=== PATIENT | female | born 1990 ===

== ENCOUNTER 2017-01-19 09:34 | Day surgery (SDC) | payer OTHER ==
[2017-01-16 08:07] VITALS: BMI 27.1
[2017-01-19] MEDS ORDERED: Strong Iodine Topical Sol. 5%-10% ONE (09:35)
[2017-01-19] MEDS ORDERED: Ferric Subsulfate Sol(60 mL) ONE (09:36)
[2017-01-19] MEDS ORDERED: Lactated Ringer's 1,000 ML IV ONE (10:29)
[2017-01-19] MEDS ORDERED: Propofol 10 mg/ml Inj (20 ML) ONE (10:59)
[2017-01-19] MEDS ORDERED: Sevoflurane - Inhalation Anesthetic Liq (250 ml) ONE (11:00)
[2017-01-19] MEDS ORDERED: Midazolam 2 MG/2 ML VIAL ONE (11:00)
--- NOTE | 2017-01-19 11:46 | PCM.SURG1 ---
Surgeon's Initial Post Op Note - Surgeon's Notes Surgeon: Dr Ballard Director On Air: None Type of Anesthesia: General Endo Anesthesia Administered By: Dr Bal Pre-Operative Diagnosis: High Grade Lesion of the cervix( Severe Cervical Dysplasia) Operative Findings: Normal sized uterus. Whole squamocolumnar junction seen. Some areas around the squamocolumnar junction did not take lugols iodine. IVF- 200mls. Urine Output- 50mls. EBL- 5 mls Post-Operative Diagnosis: Same as preop Operation Performed: LEEP Cone Biopsy of Cervix using the Akimbojad cone Excisor - Small size Specimen/Specimens Removed: Cervical tissue Estimated Blood Loss: EBL {In ML}: 5 Post-Op Condition: Good Date of Surgery/Procedure: 01/19/17 Time of Surgery/Procedure: 11:48
--- NOTE | 2017-01-19 11:50 | CP.SDSHP ---
Same Day Surgery H & P - History Proposed Procedure: LEEP cone biopsy Pre-Op Diagnosis: Sever cervical dysplasia - Previous Medical/Surgical History Previous Surgical History: NKDA - Allergies Allergies: Allergies No Known Allergies Allergy (Verified 09/20/16 08:27) - Physical Exam General Appearance: Well Vital Signs: Vital Signs 01/19/17 01/19/17 09:55 09:58 Temperature 98.2 F Pulse Rate 82 82 Respiratory 20 Rate Blood Pressure 105/64 O2 Sat by Pulse 98 Oximetry Mental Status: Alert & Oriented x3 Neuro: WNL Heart: WNL Lungs: WNL GI: WNL - {Optional Preform as Required} Abdomen: WNL : WNL - Impression Impression: Severe Cervical Dysplasia( HGSIL ) Pt. Evaluated Today:Candidate for Anesthesia & Procedure: Yes - Date & Time Date: 01/19/17 Time: 11:00 Short Stay Discharge - Short Stay Discharge Admitting Diagnosis/Reason for Visit: R87.613 Disposition: HOME/ ROUTINE Referrals: Fatemeh Chacon MD [Primary Care Provider] -
[2017-01-19] MEDS ORDERED: Lactated Ringer's 1,000 ML IV SCH (12:02)
[2017-01-19 12:41] VITALS: O2SAT 100
[2017-01-19 14:51] VITALS: BP 110/60; PULSE 59; RESP 19; TEMP 98
--- NOTE | 2017-01-19 19:40 | OP ---
PROCEDURE DATE: 01/19/2017 PREOPERATIVE DIAGNOSIS: A 26-year-old with severe cervical dysplasia. POSTOPERATIVE DIAGNOSIS: A 26-year-old with severe cervical dysplasia. PROCEDURE DONE: LEEP cone biopsy using the Villa Cone Excisor. SURGEON: Dr. Ballard. DIRECTOR OF PAYROLL: None. ANESTHESIA: General endotracheal. Anesthesia was administered by Dr. gAuilar. OPERATIVE FINDINGS: Normal sized anteverted uterus. The whole squamocolumnar junction was seen on s peculum examination. There were some iodine free areas after application of the Lugol's iodine. IV FLUID INTAKE: About 200 mL. URINE OUTPUT: 50 mL of clear urine. ESTIMATED BLOOD LOSS: About 5 mL. COMPLICATIONS: No complications. SPECIMEN: Cervical tissue for histopathology. DESCRIPTION OF PROCEDURE: After obtaining informed consent, the patient was sent to the OR with IV r unning. The patient was placed in the supine position on the OR table and after adequate general ane sthesia, was placed in a dorsal lithotomy position. The patient was then prepped and draped in a aliya rile fashion. The urinary bladder was drained with a straight cath with output of about 50 mL of dinah ar urine. Using a [place] speculum, the cervix was exposed. The cervix was then treated with Lugol's iodine and using a small sized Villa Cone Excisor, the circumferential tissue of the cervix includi ng the squamocolumnar junction was excised. Bleeding points after the procedure were stopped using a Bovie device. The crater left in the tissue was treated with Monsel solution. The patient tolerate d procedure well. Once the procedure was completed, all the instruments were taken out and the patie nt was then replaced in a supine position. The patient was sent to the recovery room awake and in st able condition. All counts of instruments used were correct x 3. Keith Ballard MD cc: [id number] TT: 01/19/2017 19:39:41 jn
== END 2017-01-19 13:25 | disposition home or self-care (01) ==
LOC: H.OPSURG 09:34
PROVIDERS: ATTEND Obstetrics & Gynecology
DX: R87.613 High grade squamous intraepithelial lesion on cytologic smear of cervix (HGSIL) (principal)

== ENCOUNTER 2017-01-21 18:44 | Emergency (ER) | payer OTHER ==
[2017-01-21 18:44] VITALS: BMI 27.1
[2017-01-21 19:14] VITALS: BP 110/70; PULSE 73; RESP 20; TEMP 98.4; O2SAT 100
--- NOTE | 2017-01-21 20:02 | ED PDOC ---
HPI: Abdomen Time Seen by Provider: 01/21/17 19:24 Chief Complaint (Nursing): Female Genitourinary Chief Complaint (Provider): Abdominal Pain History Per: Patient History/Exam Limitations: no limitations Onset/Duration Of Symptoms: Days (ongoing since yesterday) Outside of [place] travel?: No Current Symptoms Are (Timing): Still Present Severity: Moderate Associated Symptoms: denies: Fever, Chills, Urinary Symptoms (dysuria) Exacerbating Factors: Movement, Other (lifting heavy objects) Alleviating Factors: Rest, Other (laying flat) Additional Complaint(s): Chanel Colvin is a 26 year old female, with a past medical history of gastritis, who presents to the emergency department s/p cervical cone biopsy, performed 2 days ago, for high grade cervical dysplasia, inclusive of complaints of lower abdominal pain, ongoing since yesterday. Patient reports associated abnormal vaginal bleeding that has since then resolved. Exacerbating factors include movement and lifting heavy objects. Alleviating factors include resting and laying flat. Denies a fever, chills, dysuria, or any other medical complaints. PMD: Non H Provider, [facility] Past Medical History Reviewed: Historical Data, Nursing Documentation, Vital Signs Vital Signs: Last Vital Signs Temp 98.4 F 01/21/17 19:09 Pulse 73 01/21/17 19:09 Resp 20 01/21/17 19:09 BP 110/70 01/21/17 19:09 Pulse Ox 100 01/21/17 22:17 - Medical History PMH: Anxiety, Gastritis Denies: Chronic Kidney Disease Other PMH: High Grade Cervical Dysplasia - Surgical History Other surgeries: Cervical Cone Biopsy - Family History Family History: States: Diabetes - Immunization History Hx Tetanus Toxoid Vaccination: No Hx Influenza Vaccination: No Hx Pneumococcal Vaccination: No - Home Medications Home Medications: Ambulatory Orders Medication Instructions Recorded Cyclobenzaprine [Cyclobenzaprine 10 mg PO BID #15 tab 01/21/17 HCl] - Allergies Allergies/Adverse Reactions: Allergies Allergy/AdvReac Type Severity Reaction Status Date / Time No Known Allergies Allergy Verified 09/20/16 08:27 Review of Systems ROS Statement: Except As Marked, All Systems Reviewed And Found Negative Constitutional: Negative for: Fever, Chills Gastrointestinal: Positive for: Abdominal Pain Genitourinary Female: Negative for: Dysuria Physical Exam - Reviewed Nursing Documentation Reviewed: Yes Vital Signs Reviewed: Yes - Physical Exam Appears: Positive for: Well, Non-toxic, No Acute Distress Head Exam: Positive for: ATRAUMATIC, NORMOCEPHALIC Skin: Positive for: Normal Color, Warm, Dry Cardiovascular/Chest: Positive for: Regular Rate, Rhythm. Negative for: Murmur Respiratory: Positive for: Normal Breath Sounds. Negative for: Respiratory Distress Gastrointestinal/Abdominal: Positive for: Normal Exam, Soft. Negative for: Tenderness, Guarding, Rebound Back: Positive for: Normal Inspection. Negative for: L CVA Tenderness, R CVA Tenderness Neurologic/Psych: Positive for: Alert, Oriented - ECG O2 Sat by Pulse Oximetry: 100 (RA) Pulse Ox Interpretation: Normal Medical Decision Making Medical Decision Makin:24 Initial Impression: Postoperative pain Initial Plan: * Pelvis/Transvaginal Ultrasound * Urine Dip * Urine * Flexeril 10 mg PO * Toradol 30 mg IM * Reevaluation 2214: U/S negative for acute pathology. Will d/c home. Told patient to f/u w/ her doctor in 2 days or return to ED for worsening pain, vaginal bleeding or any other concerning symptoms. Scribe Attestation: Documented by Jhoan Caldwell, acting as a scribe for Juvenal Enriquez MD. Provider Scribe Attestation: All medical record entries made by the Scribe were at my direction and personally dictated by me. I have reviewed the chart and agree that the record accurately reflects my personal performance of the history, physical exam, medical decision making, and the department course for this patient. I have also personally directed, reviewed, and agree with the discharge instructions and disposition. Disposition - Clinical Impression Clinical Impression: Genitourinary Pain - Patient ED Disposition Is Patient to be Admitted: No Doctor Will See Patient In The: ED - Disposition [facility]errals[facility]] Disposition: Routine/Home Disposition Time: 22:16 Condition: STABLE Prescriptions: Cyclobenzaprine [Cyclobenzaprine HCl] 10 mg PO BID #15 tab Instructions: Pain Management After Surgery (GEN), Pelvic Pain in Women (ED)
--- NOTE | 2017-01-21 22:43 | US ---
EXAM: US Pelvis Complete, Transabdominal CLINICAL HISTORY: 26 years old, female; Pain; Abdominal pain; Lower abdomen; Additional info: S/P leep on thursday w/ lower abd pain and vb TECHNIQUE: Real-time transabdominal pelvic ultrasound (complete) with image documentation. COMPARISON: No relevant prior studies available. FINDINGS: Uterus/cervix: Retroverted uterus. Uterus measures 6.0 x 3.4 x 4.4 cm in size. No myometrial mass. Endometrium: 0.5 cm in thickness. Right ovary: 2.8 x 2.1 x 2.9 cm in size. No mass. Small follicles. Normal flow. Left ovary: 2.6 x 2.2 x 2.6 cm in size. No mass. Small follicles. Normal flow. Free fluid: No significant free fluid. Bladder: Unremarkable as visualized. IMPRESSION: 1.No acute findings. 2.Non-acute findings are described above. EXAM: US Pelvis, Transvaginal CLINICAL HISTORY: 26 years old, female; Pain; Abdominal pain; Lower abdomen; Additional info: S/P leep on thursday w/ lower abd pain and vb TECHNIQUE: Real-time transvaginal pelvic ultrasound (complete) with image documentation. Transvaginal imaging was used for better evaluation of the endometrium and adnexa. COMPARISON: No relevant prior studies available. FINDINGS: Uterus/cervix: Retroverted uterus. Uterus measures 6.0 x 3.4 x 4.4 cm in size. No myometrial mass. Endometrium: 0.5 cm in thickness. Right ovary: 2.8 x 2.1 x 2.9 cm in size. No mass. Small follicles. Normal flow. Left ovary: 2.6 x 2.2 x 2.6 cm in size. No mass. Small follicles. Normal flow. Free fluid: No significant free fluid. Bladder: Empty bladder which cannot be evaluated with this probe.
== END 2017-01-21 22:29 | disposition home or self-care (01) ==
LOC: H.ER 18:44
DX: G89.18 Other acute postprocedural pain (principal); F41.9 Anxiety disorder, unspecified

== ENCOUNTER 2017-02-04 18:36 | Emergency (ER) | payer OTHER ==
[2017-02-04 18:36] VITALS: BMI 27.1
[2017-02-04 18:49] VITALS: BP 109/66; PULSE 72; RESP 16; TEMP 98.2; O2SAT 100
--- NOTE | 2017-02-04 19:14 | ED PDOC ---
HPI: General Adult Time Seen by Provider: 02/04/17 18:57 Chief Complaint (Nursing): Wound Check History Per: Patient Additional Complaint(s): Pt. states on on 01/19/17 she had LEEP procedure done here in [facility] which was done by Dr. Ballard. Today she developed yellow vaginal discharge but no pain to area. Denies fever, dysuria, hematuria, incontinence. Past Medical History Reviewed: Historical Data, Nursing Documentation, Vital Signs Vital Signs: Last Vital Signs Temp 98.2 F 02/04/17 18:44 Pulse 72 02/04/17 18:44 Resp 16 02/04/17 18:44 BP 109/66 02/04/17 18:44 Pulse Ox 100 02/04/17 20:50 - Medical History PMH: Anxiety, Gastritis Denies: Chronic Kidney Disease - Family History Family History: States: Diabetes - Immunization History Hx Tetanus Toxoid Vaccination: No Hx Influenza Vaccination: No Hx Pneumococcal Vaccination: No - Home Medications Home Medications: Ambulatory Orders Medication Instructions Recorded Cyclobenzaprine [Cyclobenzaprine 10 mg PO BID #15 tab 01/21/17 HCl] - Allergies Allergies/Adverse Reactions: Allergies Allergy/AdvReac Type Severity Reaction Status Date / Time No Known Allergies Allergy Verified 02/04/17 18:44 Review of Systems ROS Statement: Except As Marked, All Systems Reviewed And Found Negative Genitourinary Female: Positive for: Vaginal Discharge Physical Exam - Physical Exam Appears: Positive for: Well, Non-toxic, No Acute Distress Skin: Positive for: Normal Color, Warm. Negative for: Rash Gastrointestinal/Abdominal: Positive for: Normal Exam, Soft. Negative for: Tenderness Pelvic Exam: Positive for: External Exam Normal, No Cerv. 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 Negative for: Blood, Lesions, Ulcers - Laboratory Results Result Diagrams: 02/04/17 19:25 02/04/17 19:25 Urine POC: Negative Urine dip results: Positive for: Leukocyte Esterase (small), Blood (small). Negative for: Nitrate, Ketones, Glucose, Bilirubin, Protein - ECG O2 Sat by Pulse Oximetry: 100 - Progress ED Course And Treament: As per Dr. Perez he does not cover Dr. Ballard. Attempted to call multiple numbers for Dr. Ballard but he was unable to be reached. Pt. does not want to wait for consult. States she has an appointment tomorrow and will f/u. Rocephin 1gm IV, zithromax 1gm PO given. Disposition - Clinical Impression Clinical Impression: Cervicitis - Patient ED Disposition Is Patient to be Admitted: No - Disposition Referrals: Keith Ballard [Staff Provider] - Disposition: Routine/Home Disposition Time: 20:46 Condition: STABLE Additional Instructions: Follow up with Dr. Ballard tomorrow without fail. Instructions: Cervicitis (ED) Print Language: MONGOLIAN
[2017-02-04 19:44] LABS: BASO # 0.1 K/uL (0.0-0.2); BASO % 1.2 % (0.0-2.0); EOS # 0.2 K/uL (0.0-0.7); EOS % 2.6 % (0.0-4.0); HEMATOCRIT 37.7 % (34.0-47.0); LYMPH # 2.4 K/uL (1.0-4.3); LYMPH % 30.7 % (20.0-40.0); MEAN CELL VOLUME 94.5 fl (81.0-99.0); MEAN CORPUSCULAR HEMOGLOBIN 31.2 pg (27.0-31.0); MEAN PLATELET VOLUME 10.3 fl (7.2-11.7); MONO # 0.5 K/uL (0.0-0.8); MONO % 6.3 % (0.0-10.0); NEUT # 4.7 K/uL (1.8-7.0); NEUT % 59.2 % (50.0-75.0); NRBC % 0.1 % (0.0-0.0); RED CELL DISTRIBUTION WIDTH 12.2 % (11.5-14.5); WHITE BLOOD COUNT 7.9 K/uL (4.8-10.8)
[2017-02-04 19:52] LABS: ALB/GLOB RATIO 1.5 (1.0-2.1); ALKALINE PHOSPHATASE 74 U/L (38-126); ALT/SGPT 44 U/L (9-52); AST/SGOT 29 U/L (14-36); BILIRUBIN,TOTAL 0.5 mg/dl (0.2-1.3); BLOOD UREA NITROGEN 12 mg/dl (7-17); CALCIUM 9.7 mg/dL (8.4-10.2); CARBON DIOXIDE 24 mmol/L (22-30); CHLORIDE 103 mmol/L (98-107); GFR AFRICAN-AMERICAN > 60; GLUCOSE,RANDOM 85 mg/dL (65-105); POTASSIUM 3.8 MMOL/L (3.6-5.0); SODIUM 139 mmol/l (132-148)
[2017-02-04] MEDS ORDERED: cefTRIAXone (Rocephin) 1 gm Inj ONE (20:47)
== END 2017-02-04 22:09 | disposition home or self-care (01) ==
LOC: H.ER 18:36
DX: N72 Inflammatory disease of cervix uteri (principal); F41.9 Anxiety disorder, unspecified

== ENCOUNTER 2017-03-03 23:19 | Emergency (ER) | payer OTHER ==
[2017-03-03 23:20] VITALS: BMI 27.1
[2017-03-03 23:23] VITALS: BP 112/73; PULSE 91; RESP 18; TEMP 98.1; O2SAT 100
--- NOTE | 2017-03-04 00:01 | ED PDOC ---
HPI: Skin/Bite Injury Time Seen by Provider: 03/03/17 23:28 Chief Complaint (Nursing): Abnormal Skin Integrity Chief Complaint (Provider): split earlobe History Per: Patient History/Exam Limitations: no limitations Onset/Duration Of Symptoms: Hrs Current Symptoms Are (Timing): Still Present Additional History Per: Patient Additional Complaint(s): 26 y/o female presents for eval of split left ear lobe. Patient states she had spacers in both lobes; recently took them out and put large regular jaspal earrings in her ears. [place] that the left lobe had split all the way down to the bottom, which prompted ED visit. Denies fever, pain to ear, swelling to ear. Past Medical History Reviewed: Historical Data, Nursing Documentation, Vital Signs Vital Signs: Last Vital Signs Temp 98.1 F 03/03/17 23:21 Pulse 91 H 03/03/17 23:21 Resp 18 03/03/17 23:21 BP 112/73 03/03/17 23:21 Pulse Ox 100 03/03/17 23:21 - Medical History PMH: Anxiety, Gastritis Denies: Chronic Kidney Disease - Surgical History Surgical History: No Surg Hx - Family History Family History: States: Unknown Family Hx, Diabetes - Immunization History Hx Tetanus Toxoid Vaccination: No Hx Influenza Vaccination: No Hx Pneumococcal Vaccination: No - Home Medications Home Medications: Ambulatory Orders Medication Instructions Recorded Cyclobenzaprine [Cyclobenzaprine 10 mg PO BID #15 tab 01/21/17 HCl] - Allergies Allergies/Adverse Reactions: Allergies Allergy/AdvReac Type Severity Reaction Status Date / Time No Known Allergies Allergy Verified 02/04/17 18:44 Review of Systems ROS Statement: Except As Marked, All Systems Reviewed And Found Negative ENT: Positive for: Other (ear lobe split) Physical Exam - Reviewed Nursing Documentation Reviewed: Yes Vital Signs Reviewed: Yes - Physical Exam Appears: Positive for: Well, Non-toxic, No Acute Distress Head Exam: Positive for: ATRAUMATIC, NORMAL INSPECTION, NORMOCEPHALIC ENT: Positive for: Other (0.5cm hole right lobe, smooth skin edges. 0.7cm split left lobe, smooth skin edges. No erythema, swelling, tenderness, bleeding. ) Neurologic/Psych: Positive for: Alert, Oriented - ECG O2 Sat by Pulse Oximetry: 100 - Progress ED Course And Treament: left lobe cleaned with NS, bacitracin applied. Patient educated on findings, discharged with instructions to follow up with plastic surgeon. Patient requesting the name of a plastic surgeon to follow up with. Advised to discontinue earring use until follow up. Return to ED for worsening/concerning symptoms. Disposition - Clinical Impression Clinical Impression: Split ear lobe - Patient ED Disposition Is Patient to be Admitted: No Counseled Patient/Family Regarding: Diagnosis, Need For Followup - Disposition Referrals: Cyrus Wilder MD [Staff Provider] - Brandon Cruz MD [Staff Provider] - Disposition: Routine/Home Disposition Time: 00:04 Condition: STABLE
== END 2017-03-04 00:10 | disposition home or self-care (01) ==
LOC: H.ER 23:19
DX: H93.8X2 Other specified disorders of left ear (principal)

== ENCOUNTER 2017-06-16 23:35 | Emergency (ER) | payer OTHER, SELFPAY ==
[2017-06-16 23:35] VITALS: BMI 27.1
[2017-06-16 23:40] VITALS: BP 114/70; PULSE 84; RESP 18; TEMP 97.8; O2SAT 99
--- NOTE | 2017-06-17 00:30 | ED PDOC ---
HPI: CCC, URI, Sore Throat Time Seen by Provider: 06/16/17 23:50 Chief Complaint (Nursing): Headache Chief Complaint (Provider): congestion, sinus pressure History Per: Patient History/Exam Limitations: no limitations Onset/Duration Of Symptoms: Days (3), Waxing/Waning Current Symptoms Are (Timing): Still Present Location Of Pain: Sinus/es Associated Symptoms: Nasal Congestion Additional History Per: Patient Additional Complaint(s): 27 y/o female presents with sinus pressure, nasal congestion x 3 days. Patient states pressure comes and goes, worse when leaning forward, and associated with dizziness when present. Denies fever, ear pain, throat pain, cough, chest pain , shortness of breath, palpitations, abdominal pain, recent travel, sick contacts. Past Medical History Reviewed: Historical Data, Nursing Documentation, Vital Signs Vital Signs: Last Vital Signs Temp 97.8 F 06/16/17 23:36 Pulse 84 06/16/17 23:36 Resp 18 06/16/17 23:36 BP 114/70 06/16/17 23:36 Pulse Ox 99 06/16/17 23:36 - Medical History PMH: Anxiety, Gastritis Denies: Chronic Kidney Disease - Surgical History Surgical History: No Surg Hx - Family History Family History: States: Unknown Family Hx, Diabetes - Immunization History Hx Tetanus Toxoid Vaccination: No Hx Influenza Vaccination: No Hx Pneumococcal Vaccination: No - Home Medications Home Medications: Ambulatory Orders Medication Instructions Recorded Cyclobenzaprine [Cyclobenzaprine 10 mg PO BID #15 tab 01/21/17 HCl] Fluticasone Nasal [Flonase] 1 actuation NS BID #1 bottle 06/17/17 Ibuprofen/Pseudoephedrine HCl 1 cap PO Q4 PRN #30 capsule 06/17/17 [Advil Cold-Sinus Liqui-Gels] - Allergies Allergies/Adverse Reactions: Allergies Allergy/AdvReac Type Severity Reaction Status Date / Time No Known Allergies Allergy Verified 02/04/17 18:44 Review of Systems ROS Statement: Except As Marked, All Systems Reviewed And Found Negative ENT: Positive for: Nose Congestion Physical Exam - Reviewed Nursing Documentation Reviewed: Yes Vital Signs Reviewed: Yes - Physical Exam Appears: Positive for: Well, Non-toxic, No Acute Distress Head Exam: Positive for: ATRAUMATIC, NORMAL INSPECTION, NORMOCEPHALIC Skin: Positive for: Normal Color Eye Exam: Positive for: Normal appearance ENT: Positive for: TM Is/Are (clear b/l), Sinus Pain/Drainage (ethmoid b/l), Nasal Congestion. Negative for: Pharyngeal Erythema, Tonsillar Exudate, Tonsillar Swelling Cardiovascular/Chest: Positive for: Regular Rate, Rhythm Respiratory: Positive for: Normal Breath Sounds Gastrointestinal/Abdominal: Positive for: Normal Exam Back: Positive for: Normal Inspection Extremity: Positive for: Normal ROM Neurologic/Psych: Positive for: Alert, Oriented - ECG O2 Sat by Pulse Oximetry: 99 Disposition - Clinical Impression Clinical Impression: Sinusitis - Patient ED Disposition Is Patient to be Admitted: No Counseled Patient/Family Regarding: Studies Performed, Diagnosis, Need For Followup, Rx Given - Disposition Disposition: Routine/Home Disposition Time: 00:37 Condition: GOOD Additional Instructions: Follow up with primary doctor in 2-3 days. Take medication as directed. Rest. Drink plenty of fluids. Return to ED for worsening/concerning symptoms. Prescriptions: Fluticasone Nasal [Flonase] 1 actuation NS BID #1 bottle Ibuprofen/Pseudoephedrine HCl [Advil Cold-Sinus Liqui-Gels] 1 cap PO Q4 PRN #30 capsule PRN Reason: Sinus Symptoms Instructions: Rhinosinusitis (ED)
== END 2017-06-17 00:46 | disposition home or self-care (01) ==
LOC: H.ER 23:35
DX: J32.9 Chronic sinusitis, unspecified (principal); F41.9 Anxiety disorder, unspecified

== ENCOUNTER 2017-10-29 18:41 | Emergency (ER) | payer OTHER ==
[2017-10-29 18:41] VITALS: BMI 27.1
[2017-10-29 19:00] VITALS: BP 123/79; PULSE 75; RESP 16; TEMP 98.3; O2SAT 100
--- NOTE | 2017-10-29 19:20 | ED PDOC ---
HPI: Female Pain Time Seen by Provider: 10/29/17 19:17 Chief Complaint (Nursing): Female Genitourinary Chief Complaint (Provider): dysuria, vaginal discomfort History Per: Patient Additional Complaint(s): 27-year-old female presents to emergency department for evaluation of vaginal discomfort and discharge that started 3 days ago. Patient states that her current sexual partner is having unprotected intercourse with another female and she is concerned about STD. Patient denies fever or chills, no nausea or vomiting. 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 PMD: none Past Medical History Reviewed: Historical Data, Nursing Documentation, Vital Signs Vital Signs: Last Vital Signs Temp 98.3 F 10/29/17 18:55 Pulse 75 10/29/17 18:55 Resp 16 10/29/17 18:55 BP 123/79 10/29/17 18:55 Pulse Ox 100 10/29/17 18:55 - Medical History PMH: Anxiety, Gastritis - Family History Family History: States: Diabetes - Living Arrangements Living Arrangements: With Family - Social History Current smoker - smoking cessation education provided: Yes Alcohol: Occasional Drugs: Denies - Home Medications Home Medications: Ambulatory Orders Medication Instructions Recorded Cyclobenzaprine [Cyclobenzaprine 10 mg PO BID #15 tab 01/21/17 HCl] Fluticasone Nasal [Flonase] 1 actuation NS BID #1 bottle 06/17/17 Ibuprofen/Pseudoephedrine HCl 1 cap PO Q4 PRN #30 capsule 06/17/17 [Advil Cold-Sinus Liqui-Gels] Ciprofloxacin 0.3% [Ciloxan 0.3% 2 drop .ROUTE DAILY #1 bottle 06/28/17 Ophth SOLN] Doxycycline Monohydrate 100 mg PO BID #14 tablet 10/29/17 Fluconazole [Diflucan] 150 mg PO ONCE #1 tab 10/29/17 Metronidazole [Metrogel] 60 gm VAG HS #1 packet 10/29/17 - Allergies Allergies/Adverse Reactions: Allergies Allergy/AdvReac Type Severity Reaction Status Date / Time No Known Allergies Allergy Verified 10/29/17 18:55 Review of Systems ROS Statement: Except As Marked, All Systems Reviewed And Found Negative Constitutional: Negative for: Fever Gastrointestinal: Negative for: Abdominal Pain Genitourinary Female: Positive for: Dysuria, Vaginal Discharge, Pelvic Pain. Negative for: Vaginal Bleeding Physical Exam - Reviewed Nursing Documentation Reviewed: Yes Vital Signs Reviewed: Yes - Physical Exam Appears: Positive for: Well, Non-toxic, No Acute Distress Skin: Positive for: Normal Color. Negative for: Rash Eye Exam: Positive for: Normal appearance Cardiovascular/Chest: Positive for: Regular Rate, Rhythm Respiratory: Positive for: CNT, Normal Breath Sounds Gastrointestinal/Abdominal: Positive for: Normal Exam Pelvic Exam: Positive for: Other (ild diffuse erythema noted to the external genitalia with no lesions, copious amount of white thick discharge noted from the closed cervical os cervix is inflamedwith patchy white exudate noted, there is mild CMT, no active bleeding) Back: Positive for: Normal Inspection. Negative for: L CVA Tenderness, R CVA Tenderness Extremity: Positive for: Normal ROM Neurologic/Psych: Positive for: Alert, Oriented - Laboratory Results Urine POC: Negative Urine dip results: Positive for: Leukocyte Esterase (trace). Negative for: Blood, Nitrate, Ketones, Glucose, Bilirubin - ECG O2 Sat by Pulse Oximetry: 100 Pulse Ox Interpretation: Normal Medical Decision Making Medical Decision Makin-year-old female with vaginal discomfort, concern for possible STDs Plan: Urine test Urine dip Urine culture GC/chlamydia culture Genital culture Patient agrees to prophylactic treatment of both gonorrhea and chlamydia with IM rocephin 250 mg and PO 1 gram zithromax. Rx doxycycline, Diflucan and MetroGel provided. Patient was instructed to follow up with sales specialist in 2-3 days. Disposition - Clinical Impression Clinical Impression: Cervicitis, Possible exposure to STD - Patient ED Disposition Is Patient to be Admitted: No Counseled Patient/Family Regarding: Studies Performed, Diagnosis, Need For Followup, Rx Given - Disposition [facility]] Disposition: Routine/Home Disposition Time: 20:25 Condition: STABLE Additional Instructions: Take prescription meds as directed. [id number] Monistat cream for external itching. Follow-up with sales specialist in 2-3 days. Prescriptions: Doxycycline Monohydrate 100 mg PO BID #14 tablet Fluconazole [Diflucan] 150 mg PO ONCE #1 tab Metronidazole [Metrogel] 60 gm VAG HS #1 packet Instructions: Bacterial Vaginosis, Sexually-Transmitted Diseases, Vaginal Yeast Infection (DC) Forms: [employer] ([place])
[2017-10-29] MEDS ORDERED: cefTRIAXone (Rocephin) 250 mg Inj IM STA (19:47)
[2017-10-29 20:30] LABS: SQUAMOUS EPITHIAL 7 /hpf (0-5); URINE BACTERIA RARE (<OCC); URINE BILIRUBIN NEGATIVE (NEGATIVE); URINE BLOOD NEGATIVE (NEGATIVE); URINE CLARITY CLOUDY (Clear); URINE COLOR YELLOW (YELLOW); URINE GLUCOSE (UA) NEG (Normal); URINE LEUKOCYTE ESTERASE LARGE Leu/uL (Negative); URINE NITRATE NEGATIVE (NEGATIVE); URINE PROTEIN 30 mg/dL (NEGATIVE); URINE UROBILINOGEN 0.2-1.0 mg/dL (0.2-1.0)
[2017-10-29] MEDS ORDERED: cefTRIAXone (Rocephin) 250 mg Inj ONE (20:44)
== END 2017-10-29 20:56 | disposition home or self-care (01) ==
LOC: H.ER 18:41
DX: N72 Inflammatory disease of cervix uteri (principal); F41.9 Anxiety disorder, unspecified; F17.200 Nicotine dependence, unspecified, uncomplicated
CPT/HCPCS: 81003; 87070; 87491; 87591; 96372; 99283; J0696

== ENCOUNTER 2018-03-29 14:57 | Emergency (ER) | payer OTHER ==
[2018-03-29 14:57] VITALS: BMI 27.1
[2018-03-29 15:21] VITALS: BP 121/63; PULSE 81; RESP 18; TEMP 98.5; O2SAT 100
--- NOTE | 2018-03-29 17:57 | ED PDOC ---
HPI: Abdomen Time Seen by Provider: 03/29/18 17:39 Chief Complaint (Nursing): GI Problem Chief Complaint (Provider): GI Problem History Per: Patient History/Exam Limitations: no limitations Onset/Duration Of Symptoms: Days (x14) Current Symptoms Are (Timing): Still Present Additional Complaint(s): 27 y/o female with a PMHx of chronic constipation presents to the ED complaining of constipation which has worsened in the last two weeks. Patient reports of a little more nausea than usual. Patient states pain is severe. Additionally, patient reports of taking a laxative with no relief. Patient is now requesting a fleet enema. PMD: None Provided Past Medical History Reviewed: Historical Data, Nursing Documentation, Vital Signs Vital Signs: Last Vital Signs Temp 98.5 F 03/29/18 15:18 Pulse 81 03/29/18 15:18 Resp 18 03/29/18 15:18 BP 121/63 03/29/18 15:18 Pulse Ox 100 03/31/18 00:10 - Medical History PMH: Anxiety, Gastritis Denies: Chronic Kidney Disease - Surgical History Surgical History: - Family History Family History: States: Unknown Family Hx, Diabetes - Immunization History Hx Tetanus Toxoid Vaccination: No Hx Influenza Vaccination: No Hx Pneumococcal Vaccination: No - Home Medications Home Medications: Ambulatory Orders Medication Instructions Recorded Cyclobenzaprine [Cyclobenzaprine 10 mg PO BID #15 tab 01/21/17 HCl] Fluticasone Nasal [Flonase] 1 actuation NS BID #1 bottle 06/17/17 Ibuprofen/Pseudoephedrine HCl 1 cap PO Q4 PRN #30 capsule 06/17/17 [Advil Cold-Sinus Liqui-Gels] Ciprofloxacin 0.3% [Ciloxan 0.3% 2 drop .ROUTE DAILY #1 bottle 06/28/17 Ophth SOLN] Doxycycline Monohydrate 100 mg PO BID #14 tablet 10/29/17 Fluconazole [Diflucan] 150 mg PO ONCE #1 tab 10/29/17 Metronidazole [Metrogel] 60 gm VAG HS #1 packet 10/29/17 Polyethylene Glycol 3350 [Miralax] 17 gm PO DAILY #54 ml 03/29/18 - Allergies Allergies/Adverse Reactions: Allergies Allergy/AdvReac Type Severity Reaction Status Date / Time No Known Allergies Allergy Verified 10/29/17 18:55 Review of Systems ROS Statement: Except As Marked, All Systems Reviewed And Found Negative Gastrointestinal: Positive for: Constipation Physical Exam - Reviewed Nursing Documentation Reviewed: Yes Vital Signs Reviewed: Yes - Physical Exam Appears: Positive for: No Acute Distress Head Exam: Positive for: ATRAUMATIC Skin: Positive for: Normal Color Eye Exam: Positive for: Normal appearance Neck: Positive for: Normal, Painless ROM Cardiovascular/Chest: Negative for: Bradycardia, Tachycardia Respiratory: Negative for: Accessory Muscle Use, Respiratory Distress Gastrointestinal/Abdominal: Positive for: Normal Exam, Bowel Sounds, Soft. Negative for: Tenderness Extremity: Positive for: Normal ROM Neurologic/Psych: Positive for: Alert, Oriented (x3). Negative for: Motor/ Sensory Deficits - ECG O2 Sat by Pulse Oximetry: 100 (RA) Pulse Ox Interpretation: Normal - Progress ED Course And Treament: Patient states she did not have relief from Fleets Enema and states she has moderate pain by rectal region. When offered rectal exam and possible disimpaction patient refused; and states she will take oral medication instead. Medical Decision Making Medical Decision Making: Time: 1741 Plan: -- ED Urine -- Obstructive Series XR -- Fleet Enema 135 ml [place] Time: 1833 Scribe Attestation: Documented by Jose Nava, acting as a scribe for Edgar Trejo PA-C. Provider Scribe Attestation: All medical record entries made by the Scribe were at my direction and personally dictated by me. I have reviewed the chart and agree that the record accurately reflects my personal performance of the history, physical exam, medical decision making, and the department course for this patient. I have also personally directed, reviewed, and agree with the discharge instructions and disposition. Disposition - Clinical Impression Clinical Impression: Constipation - Patient ED Disposition Is Patient to be Admitted: No - Disposition Referrals: Amrit Holguin MD [Medical Doctor] - Disposition: Routine/Home Disposition Time: 19:57 Condition: FAIR Prescriptions: Polyethylene Glycol 3350 [Miralax] 17 gm PO DAILY #54 ml Instructions: Constipation, Adult (DC) Forms: [facility] ED School/Work Excuse
[2018-03-29] MEDS ORDERED: POLYETHYLENE GLYCOL 3350 17 GM/Dose PACKET PO STA (18:31)
[2018-03-29] MEDS ORDERED: Alum-Mag Hydrox-Simethicone Susp (30 mL) ONE (18:40)
--- NOTE | 2018-03-30 10:26 | RAD ---
Date of service: 03/29/2018 PROCEDURE: Radiographs of the chest and abdomen (obstructive series) HISTORY: ABDOMINAL CONSTIPATION COMPARISON: No prior. TECHNIQUE: AP radiograph of the chest, with upright and supine radiographs of the abdomen. FINDINGS: CHEST: Lungs: No acute pulmonary disease appreciated bilaterally. Cardiovascular: Normal size heart. No pulmonary vascular congestion. Pleura: No pleural fluid. No pneumothorax. Other findings: Metallic densities at the the bilateral inferior breasts are suggestive of the nipple rings. ABDOMEN AND PELVIS: Bowel: Unremarkable bowel gas pattern. No evidence of mechanical obstruction. Moderate fecal loading is seen relatively diffusely Free air: None. Bones: Unremarkable. Other findings: None. IMPRESSION: Unremarkable radiographs of chest and abdomen. Nonobstructive bowel gas pattern. Moderate fecal loading is seen diffusely compatible the clinical history constipation.
== END 2018-03-29 19:57 | disposition home or self-care (01) ==
LOC: H.ER 14:57
DX: K59.00 Constipation, unspecified (principal)

== ENCOUNTER 2018-06-10 16:37 | Emergency (ER) | payer MEDICAID, OTHER ==
[2018-06-10 16:37] VITALS: BMI 27.1
[2018-06-10 17:39] VITALS: BP 121/85; PULSE 76; RESP 16; TEMP 98.7; O2SAT 100
--- NOTE | 2018-06-10 18:24 | ED PDOC ---
HPI: Female Pain Time Seen by Provider: 06/10/18 17:51 Chief Complaint (Nursing): Female Genitourinary Chief Complaint (Provider): Urinary frequency History Per: Patient History/Exam Limitations: no limitations Onset/Duration Of Symptoms: Hrs Current Symptoms Are (Timing): Still Present Quality Of Discomfort: Dull (Suprapubic pain) Additional Complaint(s): 28 yo female with no medical problems presents for evaluation of urinary frequency and dysuria since this morning. Pt states that she had similar in the past when she had a UTI. PT denies fever/chills. No back pain. Past Medical History Reviewed: Historical Data, Nursing Documentation, Vital Signs Vital Signs: Last Vital Signs Temp 98.7 F 06/10/18 17:37 Pulse 76 06/10/18 17:37 Resp 16 06/10/18 17:37 BP 121/85 06/10/18 17:37 Pulse Ox 100 06/10/18 17:37 - Medical History PMH: Anxiety, Gastritis Denies: Chronic Kidney Disease - Surgical History Surgical History: - Family History Family History: States: Unknown Family Hx, Diabetes - Living Arrangements Living Arrangements: With Family - Social History Current smoker - smoking cessation education provided: No - Immunization History Hx Tetanus Toxoid Vaccination: No Hx Influenza Vaccination: No Hx Pneumococcal Vaccination: No - Home Medications Home Medications: Ambulatory Orders Medication Instructions Recorded Polyethylene Glycol 3350 [Miralax] 17 g PO DAILY PRN #10 packet 04/12/18 Nitrofurantoin Macrocrystals 100 mg PO BID #10 cap 06/10/18 [Macrobid] - Allergies Allergies/Adverse Reactions: Allergies Allergy/AdvReac Type Severity Reaction Status Date / Time No Known Allergies Allergy Verified 06/10/18 17:37 Review of Systems ROS Statement: Except As Marked, All Systems Reviewed And Found Negative Constitutional: Negative for: Fever, Chills Gastrointestinal: Positive for: Vomiting (x 1 this morning, ate since ), Abdominal Pain (Mild suprapubic ). Negative for: Nausea Genitourinary Female: Positive for: Dysuria, Frequency Physical Exam - Reviewed Nursing Documentation Reviewed: Yes Vital Signs Reviewed: Yes - Physical Exam Appears: Positive for: Well, Non-toxic, No Acute Distress Head Exam: Positive for: ATRAUMATIC, NORMAL INSPECTION, NORMOCEPHALIC Skin: Positive for: Normal Color, Warm, DRY Eye Exam: Positive for: Normal appearance ENT: Positive for: Normal ENT Inspection Neck: Positive for: Normal, Painless ROM Cardiovascular/Chest: Positive for: Regular Rate, Rhythm Respiratory: Positive for: Normal Breath Sounds. Negative for: Accessory Muscle Use, Respiratory Distress Gastrointestinal/Abdominal: Positive for: Normal Exam, Soft. Negative for: Tenderness Back: Positive for: Normal Inspection Extremity: Positive for: Normal ROM Neurologic/Psych: Positive for: Alert, Oriented - ECG O2 Sat by Pulse Oximetry: 100 Disposition - Clinical Impression Clinical Impression: UTI (urinary tract infection) - Patient ED Disposition Is Patient to be Admitted: No Counseled Patient/Family Regarding: Diagnosis, Need For Followup, Rx Given - Disposition Referrals: [facility] [Outside] Disposition: Routine/Home Disposition Time: 18:25 Condition: GOOD Prescriptions: Nitrofurantoin Macrocrystals [Macrobid] 100 mg PO BID #10 cap Instructions: Urinary Tract Infections in Adults
== END 2018-06-10 19:31 | disposition home or self-care (01) ==
LOC: H.ER 16:37
DX: N39.0 Urinary tract infection, site not specified (principal); F41.9 Anxiety disorder, unspecified

== ENCOUNTER 2019-01-26 18:02 | Emergency (ER) | payer SELFPAY ==
[2019-01-26 18:02] VITALS: BMI 27.1
[2019-01-26 18:38] VITALS: BP 123/74; PULSE 74; RESP 16; TEMP 98.4; O2SAT 99
--- NOTE | 2019-01-26 20:25 | ED PDOC ---
HPI: Female Pain Time Seen by Provider: 01/26/19 19:31 Chief Complaint (Nursing): Female Genitourinary Chief Complaint (Provider): Female Genitourinary History Per: Patient History/Exam Limitations: no limitations Onset/Duration Of Symptoms: Days (x2) Current Symptoms Are (Timing): Still Present Additional Complaint(s): Patient is a 28 y/o female with a PMHx including UTI's who presents to the ED for evaluation of pelvic irritation and pressure for the past two days. Patient claims her symptoms started after returning from [place]. Patient complains of frequency, dysuria, nausea, and odor. Patient denies vomiting and vaginal discharge. Of note, patient was sexually active three weeks ago and used condoms. Furthermore, patient's LMP was two weeks ago. PCP: None Past Medical History Reviewed: Historical Data, Nursing Documentation, Vital Signs Vital Signs: Last Vital Signs Temp 98.4 F 01/26/19 18:34 Pulse 74 01/26/19 18:34 Resp 16 01/26/19 18:34 BP 123/74 01/26/19 18:34 Pulse Ox 99 01/26/19 18:34 Primary Care Provider: FAMILY PROVIDER,NO - Medical History PMH: Anxiety, Gastritis Denies: Chronic Kidney Disease Other PMH: UTI - Surgical History Surgical History: - Family History Family History: States: Diabetes - Immunization History Hx Tetanus Toxoid Vaccination: No Hx Influenza Vaccination: No Hx Pneumococcal Vaccination: No - Home Medications Home Medications: Ambulatory Orders Medication Instructions Recorded Polyethylene Glycol 3350 [Miralax] 17 g PO DAILY PRN #10 packet 04/12/18 Nitrofurantoin Macrocrystals 100 mg PO BID #10 cap 06/10/18 [Macrobid] Clotrimazole 1% Vaginal [Lotrimin 45 gm VG DAILY 7 Days #1 tube 01/26/19 1% Vaginal] Metronidazole [Flagyl] 500 mg PO BID 7 Days #14 tab 01/26/19 - Allergies Allergies/Adverse Reactions: Allergies Allergy/AdvReac Type Severity Reaction Status Date / Time No Known Allergies Allergy Verified 01/26/19 18:34 Review of Systems ROS Statement: Except As Marked, All Systems Reviewed And Found Negative Gastrointestinal: Positive for: Nausea. Negative for: Vomiting Genitourinary Female: Positive for: Dysuria, Frequency, Pelvic Pain (irritation and pressure), Other (Odor). Negative for: Vaginal Discharge Physical Exam - Reviewed Nursing Documentation Reviewed: Yes Vital Signs Reviewed: Yes - Physical Exam Comments: GENERAL APPEARANCE: Patient is awake, alert, oriented x 3, in no acute distress. SKIN: Warm, dry; (-) cyanosis. EYES: (-) conjunctival pallor. ENMT: Moist mucous membranes. Airway patent: (-) stridor. Pharynx: (-) swelling, (-) erythema. NECK: (-) tenderness, (-) stiffness, (-) lymphadenopathy. CHEST AND RESPIRATORY: (-) wheezing; (-) rales, (-) rhonchi, (-) rub; breath sounds equal bilaterally. HEART AND CARDIOVASCULAR: (-) irregularity; (-) murmur, (-) gallop. ABDOMEN AND GI: Soft; (-) tenderness. PELVIS: Pelvic exam assisted by Nurse Dory. External genitalia: (-) vesicle, (- ) rash. Internal genitalia: white malodorous discharge; (-) adnexal tenderness, (-) CMT tenderness. EXTREMITIES: (-) deformity, (-) edema. NEURO AND PSYCH: Mental status as above; (-) focal findings. - ECG O2 Sat by Pulse Oximetry: 99 (RA) Pulse Ox Interpretation: Normal Medical Decision Making Medical Decision Making: Time: 1949 Impression: r/o UTI and bacterial infection Plan: Urine Chlamydia/GC RNA, TMA Urine Culture UA UA negative, will treat for bacterial vaginitis based on exam Discussed results, diagnosis, treatment, return precautions and f/u with pt who is understanding, in agreement and stable for dc -------- --------- Scribe Attestation: Documented by Darwin Mercedes, acting as a scribe Geraldine Varghese PA-C. Provider Scribe Attestation: All medical record entries made by the Scribe were at my direction and personally dictated by me. I have reviewed the chart and agree that the record accurately reflects my personal performance of the history, physical exam, medical decision making, and the department course for this patient. I have also personally directed, reviewed, and agree with the discharge instructions and disposition. Disposition - Clinical Impression Clinical Impression: Vaginitis and vulvovaginitis - Patient ED Disposition Is Patient to be Admitted: No Counseled Patient/Family Regarding: Studies Performed, Diagnosis, Need For Fo llowup, Rx Given - Disposition Referrals: [facility] [Outside] Disposition: Routine/Home Disposition Time: 21:25 Condition: STABLE Additional Instructions: Thank you for letting us take care of you today. The emergency medical care you received today was directed at your acute symptoms. If you were prescribed any medication, please fill it and take as directed. It may take several days for your symptoms to resolve. Return to the Emergency Department if your symptoms worsen, do not improve, or if you have any other problems. Please contact your doctor in 2 days for re-evaluation and follow up / or call one of the physicians/clinics you have been referred to that are listed on the Patient Visit Information form that is included in your discharge packet. Bring any paperwork you were given at discharge with you along with any medications you are taking to your follow up visit. Our treatment cannot replace ongoing medical care by a primary care provider (PCP) outside of the emergency department. Prescriptions: Clotrimazole 1% Vaginal [Lotrimin 1% Vaginal] 45 gm VG DAILY 7 Days #1 tube Metronidazole [Flagyl] 500 mg PO BID 7 Days #14 tab Instructions: Bacterial Vaginosis (DC), Vaginitis Forms: [employer] (Angolan) Print Language: KITTITIAN - POA Present On Arrival: None
[2019-01-26 20:53] LABS: SQUAMOUS EPITHIAL 6 /hpf (0-5); URINE BACTERIA RARE (<OCC); URINE BILIRUBIN NEGATIVE (NEGATIVE); URINE BLOOD NEGATIVE (NEGATIVE); URINE CLARITY SLIGHTY-CLOUDY (Clear); URINE COLOR YELLOW (YELLOW); URINE GLUCOSE (UA) NEG (NEGATIVE); URINE LEUKOCYTE ESTERASE NEG Leu/uL (Negative); URINE PROTEIN NEGATIVE (NEGATIVE); URINE UROBILINOGEN 0.2-1.0 mg/dL (0.2-1.0)
== END 2019-01-26 21:00 | disposition home or self-care (01) ==
LOC: H.ER 18:02
DX: N76.0 Acute vaginitis (principal)